=== PATIENT | female | born 1985 | race Caucasian/White ===

== ENCOUNTER 2019-09-16 10:13 | Emergency (ER) | payer OTHER ==
[~2019-09-16] VITALS: Ht 152.4 cm; Wt 72.7 kg
[2019-09-16] MEDS ORDERED: RITO100T PO (10:35)
[2019-09-16] MEDS ORDERED: SERT50TA12 PO (10:35)
[2019-09-16] MEDS ORDERED: EMTR1TAB15 PO (10:36)
[2019-09-16 13:06] VITALS: BP 138/79
[2019-09-16] MEDS ORDERED: LORATADINE 10 MG TABLET PO ONE (13:30)
[2019-09-16] MEDS ORDERED: DEXAMETHASONE 4 MG TABLET PO ONE (13:30)
== END 2019-09-16 14:18 | disposition home or self-care (01) ==
LOC: EDBD 10:15 → EMS 10:15
DX: L29.9 Pruritus, unspecified (principal); F32.9 Major depressive disorder, single episode, unspecified; Z79.899 Other long term (current) drug therapy
CPT/HCPCS: 99283; J8540

== ENCOUNTER 2021-11-07 23:12 | Emergency (ER) | payer OTHER ==
[~2021-11-07] VITALS: Ht 152.4 cm; Wt 72.7 kg
[~2021-11-07 23:12] MED LIST: DARU600T PO; EMTR1TAB15 PO; RITO100T PO; SERT-158 PO; TRUVT PO
[2021-11-08] MEDS ORDERED: ACETAMINOPHEN 500 MG TABLET PO ONE (00:45)
[2021-11-08] MEDS ORDERED: IBUPROFEN 600 MG TABLET PO ONE (00:45)
[2021-11-08 00:52] LABS: COVID AG,FIA SOURCE NASOPHARYNGEAL
[2021-11-08 00:54] LABS: BASOPHILS % (AUTO) 0.3 % (0.0-2.0); EOSINOPHILS % (AUTO) 0 % (1.0-6.0); HEMATOCRIT 43.5 % (36-46); HEMOGLOBIN 15.3 g/dL (12.0-16.0); LYMPHOCYTES # (AUTO) 0.8 K/uL (1.0-4.8); LYMPHOCYTES % (AUTO) 6.6 % (22.0-44.0); MEAN CORPUSCULAR HGB CONC 35.1 G/dL (31.0-37.0); MEAN CORPUSCULAR VOLUME 85 fL (80-100); MONOCYTES % (AUTO) 8.1 % (2.0-9.0); PLATELET COUNT (AUTO) 207 K/uL (150-450); RED CELL DISTRIBUTION WIDTH 13.4 % (11.5-14.5)
[2021-11-08 00:58] LABS: APPEARANCE,URINE CLOUDY (CLEAR); BILIRUBIN,URINE NEGATIVE (NEGATIVE); GLUCOSE, URINE (UA) NEGATIVE (NEGATIVE); KETONES,URINE NEGATIVE (NEGATIVE); LEUKOCYTE ESTERASE ,URINE LARGE (NEGATIVE); NITRATE,URINE POSITIVE (NEGATIVE); OCCULT BLOOD,URINE MODERATE (NEGATIVE); PROTEIN,URINE SEE CONFIRM (NEGATIVE)
[2021-11-08 01:01] LABS: CALCIUM, TOTAL 9.1 mg/dL (8.8-10.5); CREATININE 1.08 mg/dL (0.60-1.30); POTASSIUM 3.3 mmol/L (3.5-5.1)
[2021-11-08 01:09] LABS: ALBUMIN 3.7 g/dL (3.4-5.0); BILIRUBIN,TOTAL 0.9 mg/dL (0.1-1.0)
[2021-11-08 01:12] LABS: SQUAMOUS EPITHELIAL CELL,UR Few /LPF (None Seen); SULFOSALICYLIC ACID,URINE 4+ (Negative); WBC,URINE >100 /HPF (0-5)
[2021-11-08 01:13] LABS: BACTERIA,URINE Many /HPF (None Seen); RBC,URINE 26-50 /HPF (0-2)
[2021-11-08 02:06] VITALS: BP 129/79
[2021-11-08] MEDS ORDERED: PHENAZOPYRIDINE HCL 100 MG TABLET PO ONE (02:15)
[2021-11-08] MEDS ORDERED: ONDANSETRON HCL 4 MG TABLET PO ONE (02:15)
[2021-11-08] MEDS ORDERED: NITROFURANTOIN/NITROFURAN MAC 100 MG CAPSULE [MACROBID] PO ONE (02:15)
[2021-11-08] MEDS ORDERED: LIDOCAINE/PF 1% 2 ML VIAL IM ONE (02:15)
[2021-11-08] MEDS ORDERED: CefTRIAXone SODIUM 1 GM/VIAL IM ONE (02:15)
== END 2021-11-08 03:03 | disposition home or self-care (01) ==
LOC: EMS 23:15
DX: N12 Tubulo-interstitial nephritis, not specified as acute or chronic (principal); F32.9 Major depressive disorder, single episode, unspecified; Z20.822 Contact with and (suspected) exposure to COVID-19
CPT/HCPCS: 36415; 80053; 81001; 83690; 85025; 87086; 87426; 96372; 99284; J0696; J3490; Q0162; U0003; 81002